=== PATIENT | male | born 1985 | race Caucasian/White ===

== ENCOUNTER 2017-07-16 17:40 | Emergency (ER) | payer MEDICAID ==
[~2017-07-16] VITALS: Ht 182.9 cm; Wt 97.0 kg
[2017-07-16 17:47] VITALS: BP 124/91; PULSE 107; RESP 16; TEMP 97.8; O2SAT 98
[2017-07-16] MEDS ORDERED: PRED20 PO (18:29)
--- NOTE | 2017-07-16 18:29 | PD ---
HPI Chief Complaint: Skin Problem Time Seen by Provider: 18:05 Travel History International Travel<30 days: Yes Contact w/Intl Traveler<30days: Yes Name of Country Traveled to: [place] , [place] Traveled to known affect area: No History of Present Illness HPI 31-year-old male presents emergency department for evaluation of: Insect bites on bilateral hands and abdomen. Patient reports he was bitten by ants yesterday while cleaning a yard debris. He reports in the past with insect bites he has had similar reactions requiring steroids. He denies fever or chills. He denies difficulty swallowing, shortness of breath, wheezing. Symptoms severity mild. No aggravating or alleviating factors. Patient has not taken any mosm-[id number]-hdoyczm medicines. PFS Past Medical History Medical History: Denies Significant Hx Diminished Hearing: No Tetanus Vaccination: < 5 Years Influenza Vaccination: No ?: Not Past Surgical History Appendectomy: Yes Other Surgery: Yes (RIGHT KNEE AND WRIST, POST INJURIES ) Social History Alcohol Use: No Tobacco Use: No Substance Use: No Allergies-Medications (Allergen,Severity, Reaction): Coded Allergies: No Known Allergies (Verified Allergy, Unknown, 07/16/17) Review of Systems Except as stated in HPI: all other systems reviewed are Neg Physical Exam Narrative GENERAL: Well-nourished, well-developed patient. SKIN: Focused skin assessment warm/dry. Multiple insect bites to bilateral hands and abdomen with surrounding erythema, warmth, mild swelling. No induration, fluctuance, lymphangitis HEAD: Normocephalic. EYES: No scleral icterus. No injection or drainage. NECK: Supple, trachea midline. No JVD or lymphadenopathy. CARDIOVASCULAR: Regular rate and rhythm without murmurs, gallops, or rubs. RESPIRATORY: Breath sounds equal bilaterally. No accessory muscle use. GASTROINTESTINAL: Abdomen soft, non-tender, nondistended. MUSCULOSKELETAL: No cyanosis, or edema. Data Data Last Documented VS Vital Signs Date Time Temp Pulse Resp B/P (MAP) Pulse Ox O2 Delivery O2 Flow Rate FiO2 07/16/17 17:47 97.8 107 16 124/91 (102) 98 MDM Medical Decision Making Medical Screen Exam Complete: Yes Emergency Medical Condition: Yes Differential Diagnosis Inflammatory response to insect bites, abscess, cellulitis Narrative Course 31-year-old male with chief complaint of redness, swelling, itching of ant bites to the hands and abdomen 2 days. On exam patient has what appears to be localized inflammatory response to insect bites. I do not suspect this is infectious in nature. Patient we put on steroids instructed to take Benadryl and follow-up with his PCP. Patient verbalizes understanding and agrees to plan Diagnosis Primary Impression: Insect bites Qualified Codes: W57.XXXA - Bitten or stung by nonvenomous insect and other nonvenomous arthropods, initial encounter Referrals: Primary Care Physician Additional Instructions: Take the medication as prescribed. Take aupr-jac-[id number] Benadryl 25-50 mg every 6 hours as needed for itching. Return to emergency department if he developed new or worsening symptoms. Scripts Prednisone (Prednisone) 20 Mg Tab 40 MG PO DAILY, #10 TAB 0 Refills Take 40 mg (2 tablets) daily for 5 days Prov: Yuliya Hartley 07/16/17 Disposition: 01 DISCHARGE HOME Condition: Stable Yuliya Hartley Jul 16, 2017 18:29
== END 2017-07-16 18:46 | disposition home or self-care (01) ==
LOC: PHEFT 17:40
DX: S60.562A Insect bite (nonvenomous) of left hand, initial encounter (principal); S60.561A Insect bite (nonvenomous) of right hand, initial encounter; W57.XXXA Bitten or stung by nonvenomous insect and other nonvenomous arthropods, initial encounter
CPT/HCPCS: 99283